=== PATIENT | female | born 1995 | race Caucasian/White ===

== ENCOUNTER 2023-07-23 13:29 | Emergency (ER) | payer OTHER ==
[~2023-07-23] VITALS: Ht 177.8 cm; Wt 127.0 kg
[2023-07-23 14:06] VITALS: BP 135/98
[2023-07-23] MEDS ORDERED: TRUVADA 200 MG1 EACH PO (15:33)
[2023-07-23] MEDS ORDERED: RALT400 PO (15:33)
== END 2023-07-23 15:56 | disposition home or self-care (01) ==
LOC: ER 13:29
DX: Z20.6 Contact with and (suspected) exposure to human immunodeficiency virus [HIV] (principal); Z72.51 High risk heterosexual behavior
CPT/HCPCS: 99281; A9270